=== PATIENT | male | born 1935 | race Caucasian/White ===

== ENCOUNTER → 2016-08-14 | Outpatient (REF) | payer MEDICARE | LOC: LAB 10:22 | PROVIDERS: ATTEND Internal Medicine | DX: E78.4 Other hyperlipidemia (principal) | CPT/HCPCS: 80061 ==

== ENCOUNTER → 2016-09-06 | Outpatient (CLI) | payer MEDICARE ==
[~2016-09-06] MED LIST: ROPIVACAINE 1% 10 MG/ML (NAROPIN) 10 ML AMPUL ONE; SODIUM CHLORIDE VIAL (PF) 10 ML IV ONE; methylPREDNISolone 80 MG/ML (DEPO MEDROL) VIAL IM ONE
== END ==
LOC: PMC 09-05 14:56
PROVIDERS: ATTEND Internal Medicine
PROC: 3E0R33Z Introduction of Anti-inflammatory into Spinal Canal, Percutaneous Approach (ICD-10-PCS; principal; 2016-09-06)
DX: M54.16 Radiculopathy, lumbar region (principal)

== ENCOUNTER → 2016-09-13 | Outpatient (CLI) | payer MEDICARE ==
[~2016-09-13] MED LIST changes: -ROPIVACAINE 1% 10 MG/ML (NAROPIN) 10 ML AMPUL ONE; -SODIUM CHLORIDE VIAL (PF) 10 ML IV ONE
== END ==
LOC: PMC 13:26
PROVIDERS: ATTEND Internal Medicine
DX: M50.13 Cervical disc disorder with radiculopathy, cervicothoracic region (principal); I10 Essential (primary) hypertension
CPT/HCPCS: 62321; J1040

== ENCOUNTER → 2016-10-04 | Outpatient (CLI) | payer MEDICARE ==
[~2016-10-04] MED LIST changes: +ALPR.25T PO; +AML5T PO; +ATN25T PO; +CIME800T63 PO; +CRS350T PO; +DILT30TA PO; +DOXY100T41 PO; +FERR325T5 PO; +FNST5T PO; +LOSA100T8 PO; +LVT.1T PO; +MIRT15TA98 PO; +OMEP20CA12 PO; +ROPIVACAINE 1% 10 MG/ML (NAROPIN) 10 ML AMPUL ONE; +SODIUM CHLORIDE VIAL (PF) 10 ML IV ONE; +TERA10CA3 PO
--- NOTE | 2016-10-07 11:24 | PAIN MANAGEMENT ---
Date of note: 10/04/2016 Procedure: Cervical epidural steroid injection at C5-6 This is a 81-year-old patient of Dr. Sampson Mccullough. The patient presents with a longstanding history of cervical neck pain. He has had very extensive surgery before on his neck and he is left with radicular symptoms, primarily in the left arm. He is no longer experiencing pain in C7-C8, but he is still having some discomfort in the dermatome level of C5-C6 and for this reason an epidural steroid injection at C5-C6 is provided. Informed consent was achieved for a cervical epidural steroid injection. He was placed in the left lateral decubitus position. Orders for procedure verified. Patient denies any bleeding tendencies. After informed consent obtained, the patient was positioned for the cervical epidural steroid injection. The area was prepped and draped using aseptic technique. The skin and overlying tissues were localized with 3 mL of 1% Preservative-Free lidocaine using a 25-gauge needle. A 20-gauge Tuohy needle was advanced, using "loss of resistance" technique, to the epidural space. No blood, cerebral spinal fluid, pain, or paresthesia noted on entry of the epidural space. A 1 mL solution of Depo-Medrol 80 mg was injected slowly without mass volume effect. The patient was placed in supine position 15 minutes prior to being released with proper leg strength and vitals. Pre- and post procedure vital signs stable with no sensory or motor deficit noted. Instruction on followup contact and care provided to the patient.
== END ==
LOC: PMC 14:48
PROVIDERS: ATTEND Internal Medicine
DX: M54.12 Radiculopathy, cervical region (principal); I10 Essential (primary) hypertension; E03.9 Hypothyroidism, unspecified; K21.9 Gastro-esophageal reflux disease without esophagitis